=== PATIENT | female | born 1995 | race Two or more races ===

== ENCOUNTER 2024-05-21 19:42 | Emergency (ER) | payer SELFPAY ==
[2024-05-21 19:43] VITALS: BMI 37.9
== END 2024-05-22 00:55 | disposition left against medical advice (07) ==
LOC: SERX 20:52
PROVIDERS: Emergency Provider Emergency Medicine
DX: Z53.21 Procedure and treatment not carried out due to patient leaving prior to being seen by health care provider (principal)